=== PATIENT | female | born 1975 | race Two or more races ===

== ENCOUNTER 2017-02-11 22:05 | Emergency (ER) | payer MEDICAID, OTHER ==
[2017-02-11 22:07] VITALS: BP 130/77; PULSE 72; RESP 16; TEMP 98.6; O2SAT 96
--- NOTE | 2017-02-11 22:31 | PD ---
HPI Chief Complaint: Abdominal Pain Time Seen by Provider: 22:27 (Danica Armstrong) Time Seen by Provider: 22:19 (Mark Marie MD) Travel History International Travel<30 days: No Contact w/Intl Traveler<30days: No Traveled to known affect area: No (Danica Armstrong) History of Present Illness HPI 41-year-old female presents to the emergency department sent by telephone [facility] for pelvic ultrasound. Patient states that she has been having left pelvic pain for 2 days. She currently rates the pain 7/10. She states that she sits up slightly hunched forward, to help alleviate the pain. No exacerbating factors. She reports slight nausea. She denies any abnormal vaginal discharge, urinary symptoms. She denies . She does state she had a large ovarian cyst removed from the left side previously. She states these are similar symptoms. She found out she was at that time. No fevers or chills. Moderate severity. (Danica Armstrong) PFSH Past Medical History ?: Not (Danica Armstrong) Past Surgical History Other Surgery: Yes (OVARIAN CYST X2) (Danica Armstrong) Social History Alcohol Use: No Tobacco Use: No Substance Use: No (Danica Armstrong) Allergies-Medications (Allergen,Severity, Reaction): Coded Allergies: No Known Allergies (Unverified , 02/11/17) Reported Meds & Prescriptions Reported Meds & Active Scripts Active No Active Prescriptions or Reported Medications (Mark Marie MD) Review of Systems Except as stated in HPI: all other systems reviewed are Neg (Danica Armstrong) Physical Exam Narrative GENERAL: Well-nourished, well-developed female patient, ambulatory. Afebrile. SKIN: Focused skin assessment warm/dry. HEAD: Normocephalic. Atraumatic. EYES: No scleral icterus. No injection or drainage. NECK: Supple, trachea midline. No JVD or lymphadenopathy. CARDIOVASCULAR: Regular rate and rhythm without murmurs, gallops, or rubs. RESPIRATORY: Breath sounds equal bilaterally. No accessory muscle use. Lungs sounds are clear to auscultation. GASTROINTESTINAL: Abdomen soft and nondistended. Patient has left pelvic tenderness to palpation. MUSCULOSKELETAL: No cyanosis, or edema. BACK: Nontender without obvious deformity. No CVA tenderness. (Danica Armstrong) Data Data Last Documented VS Vital Signs Date Time Temp Pulse Resp B/P (MAP) Pulse Ox O2 Delivery O2 Flow Rate FiO2 02/11/17 22:07 98.6 72 16 130/77 (94) 96 Room Air (Mark Marie MD) Orders Orders Ed Urine Pregnancytest Poc (02/11/17 22:27) Urinalysis - C+S If Indicated (02/11/17 22:27) Us Pelvis Comp W Doppler (02/11/17 ) Ketorolac Inj (Toradol Inj) (02/12/17 00:15) Ed Discharge Order (02/12/17 00:37) (Mark Marie MD) Labs Laboratory Tests Test 02/11/17 22:45 Urine Color YELLOW Urine Turbidity CLEAR Urine pH 6.5 Urine Specific [place] 1.023 Urine Protein NEG mg/dL Urine Glucose (UA) NEG mg/dL Urine Ketones NEG mg/dL Urine Occult Blood MOD Urine Nitrite NEG Urine Bilirubin NEG Urine Urobilinogen LESS THAN 2.0 MG/DL Urine Leukocyte Esterase NEG Urine RBC 15 /hpf Urine WBC LESS THAN 1 /hpf Urine Squamous Epithelial Cells 1 /hpf Urine Mucus FEW /lpf Microscopic Urinalysis Comment CULT NOT INDICATED (Mark Marie MD) [facility] Medical Decision Making Medical Screen Exam Complete: Yes Emergency Medical Condition: Yes Medical Record Reviewed: Yes Differential Diagnosis Ovarian cyst versus ovarian torsion versus UTI versus diverticulitis versus colitis versus nephrolithiasis Narrative Course 41-year-old female presents to the emergency department sent by [facility] for pelvic ultrasound. UA, urine test, pelvic ultrasound are ordered and pending. My attending physician, Dr. Marie, will resume care and disposition of patient. (Danica Armstrong) Medical Screen Exam Complete: Yes Emergency Medical Condition: Yes Differential Diagnosis uti vs torsion vs cyst vs colitis other (Mark Marie MD) Diagnosis Primary Impression: Abdominal pain Qualified Codes: R10.32 - Left lower quadrant pain Scripts Ibuprofen (Ibuprofen) 600 Mg Tab 600 MG PO Q6H Y for Pain/Inflammation, #40 TAB 0 Refills Prov: Mark Marie MD 02/12/17 Disposition: 01 DISCHARGE HOME Condition: Good Danica Armstrong Feb 11, 2017 22:30 Mark Marie MD Feb 12, 2017 00:56
[2017-02-11 23:09] LABS: BILIRUBIN, URINE NEG (NEG); BLOOD, URINE MOD (NEG); GLUCOSE,URINE NEG (NEG); KETONE, URINE NEG (NEG); MUCUS URINE FEW /lpf (OCC); NITRITE,URINE NEG (NEG); PH, URINE 6.5 (5.0-8.5); SQUAMOUS EPITHELIAL CELL URINE 1 /hpf (0-5); URINE COLOR YELLOW (YELLW/STRAW); URINE LEUKOCYTE ESTERASE NEG (NEG)
--- NOTE | 2017-02-11 23:53 | RADRPT ---
EXAM DATE/TIME: 02/11/2017 23:21 [place] COMPARISON: No previous studies available for comparison. INDICATIONS : Left pelvic pain. MEDICAL HISTORY : Ovarian cysts. SURGICAL HISTORY : Uterine ablation. Ovarian cyst removal. LEEP. ENCOUNTER: Initial ACUITY: 1 day PAIN SCORE: 8/10 LOCATION: Bilateral pelvis MEASUREMENTS: UTERUS: 8.9 x 4.9 x 5.9 cm ENDOMETRIAL STRIPE: 4 mm RIGHT OVARY: 3.8 x 2.0 x 2.2 cm LEFT OVARY: 3.9 x 1.8 x 2.4 cm FINDINGS: There is a small hypoechoic nodule within the uterus measures 1.2 cm in size probably a small degener ated fibroid. There is a simple cyst in the right ovary measures 2.3 cm in size. There is no free flu id. Flow is identified within both ovaries. CONCLUSION: Probable small uterine fibroid and benign-appearing simple cyst of the right ovary. Hitesh Garcia MD on February 11, 2017 at 23:50 Board Certified Radiologist. This report was verified electronically.
[2017-02-12] MEDS ORDERED: KETOROLAC TROMETHAMINE 60 MG/2 ML (IM) VIAL IM ONE (00:15)
[2017-02-12] MEDS ORDERED: IBUP-232 PO (00:55)
== END 2017-02-12 01:05 | disposition home or self-care (01) ==
LOC: NEPE 22:05
DX: R10.2 Pelvic and perineal pain (principal)
CPT/HCPCS: 76856; 81001; 84703; 93975; 96372; 99285; J1885